=== PATIENT | male | born 1960 | race African-American/Black ===

== ENCOUNTER 2021-07-30 16:55 | Emergency (ER) | payer OTHER, MEDICAID ==
[~2021-07-30] VITALS: Ht 160 cm; Wt 81.8 kg
[~2021-07-30 16:55] MED LIST: ACET325T9 PO; AMLO-187 PO; GLIP5TAB10 PO; IRON1CAP14 PO; LIDO30CR2 TP; SEVE800T9 PO; TRAZ-118 PO
[2021-07-30 17:15] VITALS: BP 181/86
== END 2021-07-30 19:33 | disposition left against medical advice (07) ==
LOC: ER 16:55
DX: R73.9 Hyperglycemia, unspecified (principal); R51.9 Headache, unspecified; R41.0 Disorientation, unspecified; Z53.21 Procedure and treatment not carried out due to patient leaving prior to being seen by health care provider